=== PATIENT | female | born 1940 | race Caucasian/White ===

== ENCOUNTER 2020-06-18 07:30 | Inpatient (IN) | payer OTHER ==
[~2020-06-18] VITALS: Ht 157.5 cm; Wt 59.0 kg
[~2020-06-18 07:30] MED LIST: ACIDOPHILUS1 EAC3 PO; DETROL LA4 MG; DIOVAN40 MG; LANTUS SOL100 UNIT/1; NOVOLOG FL100 UNIT/1; PRILOSEC OTC20 MG; SYNTHROID88 MCG; VITAMIN D31000 UNIT
[2020-06-25] MEDS ORDERED: ATACAND32 MG PO (09:20)
[2020-06-25] MEDS ORDERED: DETROL LA4 MG PO (09:21)
[2020-06-25] MEDS ORDERED: VASOTEC5 MG PO (09:21)
[2020-06-25] MEDS ORDERED: CARAFATE1 GM PO (09:21)
[2020-06-25] MEDS ORDERED: B12 ACTIVE1000 MCG PO (09:22)
[2020-06-25] MEDS ORDERED: PEPCID40 MG PO (09:22)
[2020-07-02] MEDS ORDERED: REFRESH LIQUIGE15 ML (11:10)
[2020-07-02] MEDS ORDERED: DOLOGEN CAPLET1 EACH (11:10)
[2020-07-02] MEDS ORDERED: DICLOFENAC SOD100 GM (11:10)
[2020-07-02] MEDS ORDERED: TIMOLOL MALEATE5 M4 (11:11)
[2020-07-02] MEDS ORDERED: TRAVOPROST2.5 ML (11:12)
[2020-07-02] MEDS ORDERED: MUPIROCIN22 GM (11:13)
[2020-07-02] MEDS ORDERED: MECLIZINE HCL25 MG (11:13)
[2020-07-02] MEDS ORDERED: AMLODIPINE BESYL5 MG (11:13)
== END 2020-07-06 11:57 | disposition home or self-care (01) | DRG 330 ==
LOC: O/R 07-02 06:18 → SURH 07-02 07:30 → SURG 07-02 19:25 → O/R 07-06 08:55 → SURG 07-06 08:58
PROVIDERS: ADMIT Colon & Rectal Surgery; ATTEND Colon & Rectal Surgery
PROC: 0DBN4ZZ Excision of Sigmoid Colon, Percutaneous Endoscopic Approach (ICD-10-PCS; 2020-07-02)
PROC: 0DNW4ZZ Release Peritoneum, Percutaneous Endoscopic Approach (ICD-10-PCS; 2020-07-02)
PROC: 0DTP4ZZ Resection of Rectum, Percutaneous Endoscopic Approach (ICD-10-PCS; principal; 2020-07-02 09:30)
DX: K57.20 Diverticulitis of large intestine with perforation and abscess without bleeding (principal); K56.51 Intestinal adhesions [bands], with partial obstruction; R59.0 Localized enlarged lymph nodes; K52.9 Noninfective gastroenteritis and colitis, unspecified; I10 Essential (primary) hypertension; E11.9 Type 2 diabetes mellitus without complications; Z79.4 Long term (current) use of insulin

== ENCOUNTER 2024-07-16 08:22 | Day surgery (SDC) | payer OTHER ==
[~2024-07-16 08:22] MED LIST changes: +AMLODIPINE BESYL5 MG; +ATACAND32 MG PO; +B12 ACTIVE1000 MCG PO; +CARAFATE1 GM PO; +DETROL LA4 MG PO; +DICLOFENAC SOD100 GM; +DOLOGEN CAPLET1 EACH; +MECLIZINE HCL25 MG; +MUPIROCIN22 GM; +PEPCID40 MG PO; +REFRESH LIQUIGE15 ML; +TIMOLOL MALEATE5 M4; +TRAVOPROST2.5 ML; +VASOTEC5 MG PO
[2024-07-16] MEDS ORDERED: fentaNYL CITRATE 50 MCG/ML AMPUL IV PUSH ONE (13:45)
[2024-07-16] MEDS ORDERED: ONDANSETRON HCL 2 MG/ML VIAL IV ONE (13:45)
[2024-07-16] MEDS ORDERED: MIDAZOLAM HCL 2 MG/2 ML VIAL IV ONE (13:45)
[2024-07-16] MEDS ORDERED: DIPHENHYDRAMINE HCL 50 MG/ML VIAL 1ML IV ONE (13:45)
== END 2024-07-16 15:00 | disposition home or self-care (01) ==
LOC: AMB-ENDOS 08:22
PROVIDERS: ATTEND Colon & Rectal Surgery
DX: K63.5 Polyp of colon (principal); K62.5 Hemorrhage of anus and rectum; K57.30 Diverticulosis of large intestine without perforation or abscess without bleeding